=== PATIENT | female | born 1990 | race Caucasian/White ===

== ENCOUNTER 2019-08-16 05:33 | Inpatient (IN) ==
--- NOTE | 2019-08-13 16:35 | History & Physical Report ---
Date of Service August 13, 2019 Assessment & Plan (1) Breech presentation of fetus: section. The patient was counseled to the nature of the procedure including alternatives such as labor. Risks were discussed including bleeding infection injury to bowel bladder ureter vessels and even baby. Deep Vein thrombosis, pulmonary embolus discussed. Breakdown of incision reviewed. Deep vein thrombosis pulmonary embolus hernia and failure of the incision to heal were discussed Patient verbalized understanding of this and was given ample time to ask questions History of Present Illness Primary Care Provider: NO PCP 39+ weeks GA with persistent breech presentation Scheduled for C/S Allergies Allergy/AdvReac Type Severity Reaction Status Date / Time Penicillins Allergy Intermediate swelling Verified 08/09/19 11:22 legs Home Medications Home Medications Medication Instructions Recorded Confirmed Type clindamycin phosphate 1 dose TOP UD PRN 01/04/19 08/09/19 History prenat.vits,jeffery,[id number] 1 tab PO DAILY 01/04/19 08/09/19 History Patient History Medical History Jaw clicking Varicella vaccination Surgical History Hx of LASIK S/P wisdom tooth extraction Family History Mother Hypertension Grandfather (Maternal) Hypertension Father Diverticulitis Grandfather (Maternal) Family history of diabetes mellitus Social History (Updated 01/04/19 @ 15:13 by Cassi Jackson) Preferred Language: Thai Faith Doctor Required: No Beliefs That Will Affect Care: None marital status: marital status details: Juan Roe (31) [phone] Current Living Situation: Spouse Current Living Situation Comment: lives with spouse, no pets current occupational status: employed 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 Feels Safe at Home: Yes Smoking Status: Never smoker Second Hand Exposure: No ; Hx Alcohol Use: No Hx Substance Use: No Physical Exam Constitutional: WD/WN, vitals as above Respiratory: normal respiratory effort, lungs clear to auscultation Cardiovascular: RRR, no murmur, no edema Gastrointestinal (Abdomen): normal bowel sounds, soft, nontender, no hepatospl enomegaly Genitourinary: OB Exam Abdomen: + fundal height (39), + heart tones and + breech Coding Level of Care Code None Diagnoses Breech presentation of fetus O32.1XX0
[2019-08-16] MEDS ORDERED: CITRIC ACID/SODIUM CITRATE 15 ML UDC PO SCH (06:00)
[2019-08-16] MEDS ORDERED: CEFAZOLIN 2,000 MG in SYRINGE 0 ML IV SCH (06:00)
[2019-08-16] MEDS ORDERED: LACTATED RINGER'S 1,000 ML IV SCH ×2 (06:00→11:35)
[2019-08-16 06:17] LABS: Basophils # (auto) 0.02 K/uL (0-0.2); Basophils % (auto) 0.2 %; Eosinophils # (auto) 0.09 K/uL (0-0.5); Hematocrit (blood only) 38.4 % (37-47); Hemoglobin 13.1 g/dL (12.0-16.0); Immature Granulocytes # (auto) 0.05 K/uL (0.00-0.02); Immature Granulocytes % (auto) 0.6 %; Lymphocytes % (auto) 25.1 %; Mean Corpuscular Hemoglobin 31.2 pg (25-34); Mean Corpuscular Volume 91.4 fL (80-100); Monocytes # (auto) 0.69 K/uL (0.11-0.59); Monocytes % (auto) 7.9 %; Neutrophils # (auto) 5.73 K/uL (1.4-6.5); Neutrophils % (auto) 65.2 %; Platelet Count 193 K/uL (130-400); RDW Coefficient of Variation 12.9 % (11.5-14.5); RDW Standard Deviation 42.6 fL (36.4-46.3); White Blood Count 8.78 K/uL (4.8-10.8)
[2019-08-16 06:29] LABS: Mean Corpuscular Hgb Conc 34.1 g/dL (32-36)
[2019-08-16] MEDS ORDERED: CEFAZOLIN 2000MG 2,000 MG/15 ML SYR IV ONE (06:30)
--- NOTE | 2019-08-16 07:02 | History & Physical Bridge Note ---
Date of Service August 16, 2019 History & Physical Bridge Note I have examined the patient, reviewed the History & Physical and in the interval since the performance of the History & Physical I have noted the following changes of clinical significance: no changes noted
[2019-08-16] MEDS ORDERED: MoRPHine SULFATE PF 1 MG/ML 10 ML AMP/VIAL ONE (07:33)
[2019-08-16] MEDS ORDERED: OXYTOCIN 10 UNITS/ML VIAL ONE ×3 (07:35→08:51)
[2019-08-16] MEDS ORDERED: ePHEDrine sulfate 50 MG/ML AMP ONE (08:19)
--- NOTE | 2019-08-16 08:22 | Anesthesiology Consultation ---
Date of Service August 16, 2019 Assessment & Plan Chart Review Chart Review: Acceptable Risk for Surgery Consults Requested none History Surgery Operation Date: 08/16/19 07:30 Proposed Procedures p Section in LD - Charu. Isaiah Rodriguez MD, FACOG Height/Weight Height: 5 ft 8 in Weight: 72.121 kg Allergies Allergy/AdvReac Type Severity Reaction Status Date / Time Penicillins Allergy Intermediate swelling Verified 08/09/19 11:22 legs Medications Home Medications Medication Instructions Recorded Confirmed Last Taken prenat.vits,jeffery,[id number]-[id number]-[id number] 1 tab PO DAILY 01/04/19 08/16/19 08/15/19 Active Medications Generic Name Dose Route Start Last Admin Trade Name Freq PRN Reason Stop Dose Admin Citric Acid/Sodium Citrate 30 ml 08/16/19 06:00 08/16/19 07:33 Bicitra PO 08/16/19 18:00 30 ml PREOP SCAR Administration Lactated Ringer's 1,000 mls @ 999 mls/hr 08/16/19 06:00 08/16/19 07:00 Lr IV 08/16/19 18:00 Infused .Q1H1M SCAR Infusion NPO Date Last Intake of Fluids: 08/15/19 Time Last Intake of Fluids: 22:00 Date Last Intake of Solids: 08/15/19 Time Last Intake of Solids: 22:00 Past Medical History Medical History Jaw clicking Varicella vaccination Past Family History Family History Mother Hypertension Grandfather (Maternal) Hypertension Father Diverticulitis Grandfather (Maternal) Family history of diabetes mellitus Past Surgical History Surgical History Hx of LASIK S/P wisdom tooth extraction Social History Smoking Status: Never smoker Do You Dip or Chew Tobacco: No Hx Alcohol Use: No Hx Substance Use: No substance use type: does not use Physical Exam Vital Signs Last Vital Signs Temp 37.3 C 08/16/19 05:51 Pulse 73 08/16/19 05:50 Resp 18 08/16/19 05:51 BP 141/75 H 08/16/19 05:50 Testing Laboratory Results 08/16/19 05:52 Blood Type O Positive 08/16/19 05:52 Antibody Screen NEGATIVE 08/16/19 05:52
[2019-08-16] MEDS ORDERED: MoRPHine SULFATE PF 1 MG/ML 10 ML AMP/VIAL INT SPINAL ONE (08:23)
[2019-08-16] MEDS ORDERED: HYDROmorphone INJ 0.5 MG/0.5 ML SYR IV PRN (08:23)
[2019-08-16] MEDS ORDERED: MEPERIDINE HCL 25 MG/ML CARP/VIAL IV PRN (08:23)
[2019-08-16] MEDS ORDERED: NALOXONE HCL 1 MG in SODIUM CHLORIDE 0.9% 1000ML 1,000 ML IV PRN (08:23)
[2019-08-16] MEDS ORDERED: ONDANSETRON INJ 2 MG/ML 2 ML VIAL IV PRN (08:23)
[2019-08-16] MEDS ORDERED: PROMETHAZINE HCL 25 MG in SODIUM CHLORIDE 0.9% 50 ML IV PRN (08:23)
[2019-08-16] MEDS ORDERED: LACTATED RINGER'S 500 ML IV PRN (08:23)
[2019-08-16] MEDS ORDERED: DiphenhydrAMINE HCL 50 MG/ML VIAL IV PRN (08:23)
[2019-08-16] MEDS ORDERED: NALOXONE HCL 0.08 MG in SYRINGE 1.8 ML IV PRN (08:23)
[2019-08-16] MEDS ORDERED: METOCLOPRAMIDE HCL 20 MG in SODIUM CHLORIDE 0.9% 50 ML IV PRN (08:23)
[2019-08-16] MEDS ORDERED: ePHEDrine sulfate 50 MG/ML AMP IV PRN (08:23)
[2019-08-16] MEDS ORDERED: NALOXONE HCL 0.4 MG/1 ML VIAL/CARP IV PRN (08:23)
[2019-08-16] MEDS ORDERED: MoRPHine SULFATE 2 MG/ML CARP IV PRN (08:23)
[2019-08-16] MEDS ORDERED: NO NARCOTICS OR SEDATIVES SCH (08:30)
[2019-08-16] MEDS ORDERED: SODIUM CHLORIDE 0.9% 1000ML 1,000 ML IV SCH (08:30)
--- NOTE | 2019-08-16 08:41 | Operative Report ---
PG Post Operative Report Pre & Post Diagnosis Operation Date: 08/16/19 07:30 Pre-Op Diagnosis: 1. Breech Presentation 2. 39 Completed Weeks Post-Op Diagnosis: 1. Same I identified the patient and participated in the time-out.: Yes Procedure Operation Date: 08/16/19 07:30 Actual Procedures p Section in LD(Bilateral) - Khoi Rodriguez MD, FACOG Surgeon Khoi Rodriguez MD, FACOG Plastic Boat Buffer Dr. Blanchard Estimated Blood Loss 600 Findings Consistent with Post-Op Diagnosis Specimens cord gases and blood Description of Procedure Regional anesthetic was given by anesthesia patient had a Eckert catheter inserted by nursing patient was prepped and draped in supine position with a leftward tilt preoperative antibiotics were given timeout performed Pickups with teeth were used to test the skin site and it was found adequate for incision scalpel used to make a Pfannenstiel incision cutting down through subc utaneous fat through the fascia fascia was then dissected laterally with the curved Hidalgo's fascia was released superiorly and inferiorly from the rectus muscles with the curved Hidalgo scissors, rectus muscle split peritoneal cavity entered in a superior location. Opening enlarged to allow exposure bladder retractor placed Metzenbaums used to dissect away the bladder flap low segment transverse incision made on the uterus with scalpel entry was done bluntly with the thiokol operator's finger hysterotomy incision extended with the thiokol operator's finger in the usual fashion baby Was in a andrez breech position. I was able to flex the hips and then deliver the breech through the uterine incision back was placed anteriorly gentle traction on the baby both legs were difficult delivered without difficulty as were the arms and baby's head was easily delivered without any excessive traction or extension the fluid was clear and there was no nuchal cord baby was live and vigorous cord clamped and cut cord gases obtained cord blood obtained placenta removed manually within ensured all placenta removed with a moist lap sponge uterus exteriorized IV Pitocin had been started by anesthesia and uterine tone improved. The uterus was closed in 2 layers first layer and 0 Monocryl running locked second layer 0 Monocryl nonlocked after generous irrigation and suction of the cul-de-sac and bladder flap regions he mostasis was excellent uterus was placed back in the peritoneal cavity and hemostasis was excellent rectus muscles were inspected and found to be dry fascia closed with 0 Vicryl subcutaneous fat closed with 3-0 Vicryl prior to this subcutaneous fat was irrigated skin closed with 4-0 subcuticular Monocryl incision Steri-Stripped urine was clear at the end of the procedure Note the uterus was normal there was no septum no bicornuate uterus I attest to the content of the Intraoperative Record and any orders documented therein. Any exceptions are noted below.
[2019-08-16 08:45] LABS: Base Excess Cord Arterial Bld -0.4 mEq/L (-9-1.8); CO2 Cord Arterial Blood 58 mmHg (39.1-73.5); HCO3 Cord Arterial Blood 28 mmol/L (19.7-28.5); PO2 Cord Arterial Blood 17 mmHg (4.1-31.7); pH Cord Arterial Blood 7.29 (7.1-7.38)
[2019-08-16 08:50] LABS: Base Excess Cord Venous Blood -0.8 mEq/L (-7.7-1.9); Cord Venous Blood HCO3 25 mmol/L (18.4-26.8); Cord Venous Blood PCO2 46 mmHg (30.4-57.2); Cord Venous Blood PO2 28 mmHg (14.1-43.3); Cord Venous Blood pH 7.36 (7.20-7.44); Oxygen Sat Cord Arterial Blood < 60.0 % (<60)
[2019-08-16] MEDS ORDERED: OXYTOCIN 20 UNITS in LACTATED RINGER'S 1,000 ML IV SCH (09:15)
[2019-08-16] MEDS: KETOROLAC 30 MG/ML VIAL IV PRN ×3 (10:15→23:45)
[2019-08-16] MEDS ORDERED: MAGNESIUM HYDROXIDE SUSP 30 ML UDC PO PRN (11:35)
[2019-08-16] MEDS ORDERED: SENNA 8.6 MG TAB PO PRN (11:35)
[2019-08-16] MEDS ORDERED: NON-FORMULARY MEDICATION (Prenat.Vits,Cal,Min-Iron-Folic 1 TAB) PO SCH (11:35)
[2019-08-16] MEDS ORDERED: HYDROCORTISONE ACETATE 25 MG SUPP PR PRN (11:35)
[2019-08-16] MEDS ORDERED: DIPHTHERIA/TETANUS/PERTUSSIS 0.5 ML SYR/VIAL IM ONE (11:35)
[2019-08-16] MEDS ORDERED: BENZOCAINE 20% AER SPR 82.5 GM CAN EXT PRN (11:35)
[2019-08-16] MEDS ORDERED: SUPERCREAM 0.870% 15 GM JAR EXT PRN (11:35)
[2019-08-16] MEDS: SIMETHICONE 80 MG CHEW PO SCH ×3 (16:10→20:51)
--- NOTE | 2019-08-16 16:49 | Anesthesiology Progress Note ---
Date of Service August 16, 2019 Anesthesia Post Procedure Vital Signs Vital Signs: Temp Pulse Pulse Resp BP BP Pulse Ox 08/16/19 15:30 36.6 C 60 18 117/81 99 08/16/19 14:30 36.6 C 78 16 119/74 97 08/16/19 13:30 36.7 C 80 18 128/81 98 08/16/19 12:30 36.6 C 75 16 120/73 97 08/16/19 11:30 36.6 C 71 18 135/88 100 08/16/19 11:10 62 100 08/16/19 11:06 73 134/90 08/16/19 11:05 69 100 08/16/19 11:00 61 100 08/16/19 10:56 64 123/78 08/16/19 10:55 64 100 08/16/19 10:50 69 100 08/16/19 10:46 36.5 C 71 20 129/81 08/16/19 10:45 68 100 08/16/19 10:40 65 100 08/16/19 10:36 70 122/80 08/16/19 10:35 69 100 08/16/19 10:30 72 100 08/16/19 10:26 71 122/81 08/16/19 10:25 71 99 08/16/19 10:20 60 100 08/16/19 10:16 36.4 C L 62 20 125/84 08/16/19 10:15 64 99 08/16/19 10:10 64 100 08/16/19 10:06 70 123/85 08/16/19 10:05 63 100 08/16/19 10:00 64 99 08/16/19 09:56 69 121/82 08/16/19 09:55 71 98 08/16/19 09:50 69 98 08/16/19 09:48 20 08/16/19 09:46 73 20 121/85 08/16/19 09:45 64 97 08/16/19 09:40 73 97 08/16/19 09:36 81 20 112/82 08/16/19 09:35 73 98 08/16/19 09:30 70 97 08/16/19 09:26 65 20 110/69 08/16/19 09:25 67 96 08/16/19 09:20 72 98 08/16/19 09:16 72 20 126/82 08/16/19 09:15 73 97 08/16/19 09:10 72 97 08/16/19 09:06 75 20 117/76 08/16/19 09:05 75 96 08/16/19 09:00 70 96 08/16/19 08:56 70 20 120/67 08/16/19 08:55 68 96 08/16/19 08:50 79 97 08/16/19 08:46 36.5 C 79 20 118/65 08/16/19 08:45 73 95 08/16/19 05:51 37.3 C 18 08/16/19 05:50 73 141/75 H Pain Intensity Lower Abdomen: Pain Intensity: 0
[2019-08-16] MEDS: OXYTOCIN 30 UNITS in LACTATED RINGER'S 1,000 ML IV SCH (17:58)
[2019-08-16] MEDS: DOCUSATE SODIUM 100 MG CAP PO SCH (20:51)
[2019-08-17] MEDS: OXYTOCIN 30 UNITS in LACTATED RINGER'S 1,000 ML IV SCH (02:01)
[2019-08-17] MEDS ORDERED: ONDANSETRON INJ 2 MG/ML 2 ML VIAL IV PRN (02:23)
[2019-08-17] MEDS ORDERED: OXYCODONE/ACETAMINOPHEN 5mg/325mg TAB PO PRN (02:23)
[2019-08-17] MEDS ORDERED: DC INTRASPINAL MORPHINE SCH (02:23)
[2019-08-17] MEDS ORDERED: KETOROLAC 30 MG/ML VIAL IV PRN (02:23)
[2019-08-17] MEDS ORDERED: PROMETHAZINE HCL 25 MG in SODIUM CHLORIDE 0.9% 50 ML IV PRN (02:23)
[2019-08-17] MEDS ORDERED: DiphenhydrAMINE HCL 50 MG/ML VIAL IV PRN (02:23)
[2019-08-17 06:36] LABS: Basophils # (auto) 0.03 K/uL (0-0.2); Basophils % (auto) 0.2 %; Eosinophils # (auto) 0.11 K/uL (0-0.5); Eosinophils % (auto) 0.9 %; Hemoglobin 12.5 g/dL (12.0-16.0); Immature Granulocytes # (auto) 0.04 K/uL (0.00-0.02); Immature Granulocytes % (auto) 0.3 %; Mean Corpuscular Hemoglobin 31.1 pg (25-34); Mean Corpuscular Hgb Conc 33.8 g/dL (32-36); Mean Platelet Volume 10.9 fL (7.4-10.4); Monocytes # (auto) 0.67 K/uL (0.11-0.59); Monocytes % (auto) 5.5 %; Neutrophils # (auto) 8.96 K/uL (1.4-6.5); Neutrophils % (auto) 74.1 %; Platelet Count 159 K/uL (130-400); RDW Coefficient of Variation 12.6 % (11.5-14.5); RDW Standard Deviation 42.3 fL (36.4-46.3); Red Blood Count 4.02 M/uL (4.2-5.4); White Blood Count 12.11 K/uL (4.8-10.8)
--- NOTE | 2019-08-17 07:09 | Obstetrical Progress Note ---
Date of Service August 17, 2019 Assessment & Plan (1) S/P section: Doing well pod 1. Adat. Hewitt out and void, encourage ambulation. Day #:: 1 Subjective Ambulation: limited ambulation Voiding: hewitt catheter in place (just removed) Passing Gas:: No Diet Tolerance:: clear liquids Lochia:: Small Feeding Type:: breast feeding Pain controlled Physical Exam Constitutional WD/WN, vitals as above Cardiovascular Extremities: no calf tenderness and no edema Gastrointestinal (Abdomen) soft, nt, nd ff/nt at u incision c/d/i Psychiatric A+Ox3, euthymic affect Results & Data ([facility]) Vital Signs (Past 12 Hours) Vital Signs Temp Pulse Resp BP Pulse Ox 08/17/19 04:30 36.9 C 76 20 120/72 98 08/17/19 02:30 18 98 08/17/19 01:30 18 98 08/17/19 00:43 20 98 08/17/19 00:42 18 97 08/16/19 23:30 36.8 C 75 18 124/82 98 08/16/19 22:30 18 98 08/16/19 21:30 18 98 08/16/19 20:55 18 98 08/16/19 20:05 36.8 C 71 18 104/63 97 08/16/19 19:30 18 97
[2019-08-17] MEDS: PRENATAL VITAMIN 1 TAB PO SCH (08:18)
[2019-08-17] MEDS: IBUPROFEN 600 MG TAB PO PRN ×2 (08:18→16:46)
[2019-08-17] MEDS: FERROUS SULFATE 325 MG TAB PO SCH (08:18)
[2019-08-17] MEDS: DOCUSATE SODIUM 100 MG CAP PO SCH ×2 (08:18→21:03)
[2019-08-17] MEDS: SIMETHICONE 80 MG CHEW PO SCH ×4 (08:18→21:03)
[2019-08-17] MEDS ORDERED: bisacodyL 5 MG TABEC PO SCH (20:00)
[2019-08-18] MEDS: IBUPROFEN 600 MG TAB PO PRN ×2 (00:42→07:28)
[2019-08-18 06:35] LABS: Hemoglobin 12.5 g/dL (12.0-16.0)
[2019-08-18] MEDS: PRENATAL VITAMIN 1 TAB PO SCH (07:28)
[2019-08-18] MEDS: DOCUSATE SODIUM 100 MG CAP PO SCH (07:28)
[2019-08-18] MEDS: FERROUS SULFATE 325 MG TAB PO SCH (07:28)
--- NOTE | 2019-08-18 07:41 | Obstetrical Progress Note ---
Date of Service August 18, 2019 Assessment & Plan (1) S/P section: Postoperative day #2 from section the patient is doing well ambulating with no extremity pain she will be discharged home today discharge instructions were reviewed she will follow-up in the office Subjective Ambulation: ambulating normally Voiding: no voiding problems Passing Gas:: Yes Diet Tolerance:: regular diet Lochia:: Small Feeding Type:: breast feeding Current Pain Level(1-10): 1 Physical Exam Constitutional WD/WN, vitals as above Respiratory normal respiratory effort, lungs clear to auscultation Cardiovascular RRR, no murmur, no edema Gastrointestinal (Abdomen) normal bowel sounds, soft, nontender, no hepatosplenomegaly (Incision is clean dry intact no redness) Results & Data ([facility]) Vital Signs (Past 12 Hours) Vital Signs Temp Pulse Resp BP 08/18/19 07:39 98.1 F 67 20 112/74 08/17/19 23:28 98.6 F 63 18 108/72
[2019-08-18] MEDS ORDERED: bisacodyL 10 MG SUPP PR PRN (08:28)
--- NOTE | 2019-08-21 08:15 | Discharge Summary ---
Date of Service August 21, 2019 Admission HPI Per Admitting Provider 39+ weeks GA with persistent breech presentation Scheduled for C/S Admission Exam (Per Admitting) Constitutional WD/WN, vitals as above Respiratory normal respiratory effort, lungs clear to auscultation Cardiovascular RRR, no murmur, no edema Gastrointestinal (Abdomen) normal bowel sounds, soft, nontender, no hepatosplenomegaly (Incision is clean dry intact no redness) Discharge Data Consultations 08/16/19 05:30 Consult Anesthesiology Stat Procedures Performed Operation Date: 08/16/19 07:30 Actual Procedures p Section in LD(Bilateral) - Khoi Rodriguez MD, FACOG Hospital Course (1) S/P section: Postoperative day #2 from section the patient is doing well ambulating with no extremity pain she will be discharged home today discharge instructions were reviewed she will follow-up in the office Coding Level of Care Code None Diagnoses S/P section Z98.891
== END 2019-08-18 11:55 | disposition home or self-care (01) | DRG 788 ==
LOC: 4S1 05:33 → EDSTATUS 08:50 → 4S2 11:49

== ENCOUNTER 2022-02-03 05:35 | Inpatient (IN) ==
--- NOTE | 2022-01-28 15:07 | Anesthesiology Consultation ---
Date of Service January 28, 2022 Assessment & Plan (1) Encounter for pre-operative examination: Chart Review Chart Review: Acceptable Risk for Surgery -COVID screening: Per PAT nursing assessment on 01/28/22. No known COVID-19 positive contacts or current COVID-19 related symptoms. Travel screen negative. Patient vaccinated for Covid. At surgeon discretion if preop Covid testing being done. Patient seen by cardiology 10/26/2021 = seen for consult for assessment echocardiography due to family history of her having bicuspid aortic valve. echocardiogram performed at 25 weeks gestation showed structurally normal heart. No evidence of major cardiac disease detected. Normal biventricular systolic function. No further follow-up in cardiology clinic as necessary. Given family historyobtaining routine echocardiogram after is recommended. I do not see any cardiac contraindications for her delivering at [facility]. 08/16/19= Done under SAB at L3-4. Tolerated well (due to breech presentation) Consults Requested none History Surgery Operation Date: 02/03/22 07:30 Proposed Procedures p Section (Delivery of Baby throught Abdominal Incision) - Khoi Rodriguez MD, FACOG Height/Weight Height: 5 ft 8 in Weight: 74.389 kg Allergies Allergy/AdvReac Type Severity Reaction Status Date / Time Penicillins Allergy Intermediate swelling Verified 02/02/22 09:03 legs Medications Home Medications Medication Instructions Recorded Confirmed Last Taken prenat.vits,jeffery,[id number] 1 tab PO QAM 01/04/19 02/03/22 02/02/22 09:00 Past Medical History Medical History History of COVID-19 06/2021, home test, not hosp; no symptoms- was positive Jaw clicking Past Family History Family History Mother Hypertension Grandfather (Maternal) Hypertension Father Diverticulitis Grandfather (Maternal) Family history of diabetes mellitus Denies family history of Ovarian cancer Breast cancer Lung cancer Colorectal cancer Past Surgical History Surgical History (Updated 02/03/22 @ 06:21 by Daxa Abreu) H/O section 08/16/2019 Hx of LASIK S/P wisdom tooth extraction Social History Smoking Status: Never smoker Do You Dip or Chew Tobacco: No Hx Alcohol Use: No Hx Substance Use: No substance use type: does not use Physical Exam Vital Signs Last Vital Signs Temp 36.4 C L 02/03/22 05:44 Pulse 74 02/03/22 07:05 Resp 18 02/03/22 05:44 BP 134/92 02/03/22 07:05 Testing Laboratory Results 02/03/22 05:47 Blood Type O Positive 02/03/22 05:47 Antibody Screen NEGATIVE 02/03/22 05:47
--- NOTE | 2022-02-02 19:19 | History & Physical Report ---
Date of Service February 02, 2022 Assessment & Plan (1) Encounter for pre-operative examination: Plan: Repeat section. The patient was counseled to the nature of the procedure including alternatives such as labor. Risks were discussed including bleeding infection injury to bowel bladder ureter vessels and even baby. The risks of internal organ injury were discussed as being higher with prior sections. Deep Vein Thrombosis, pulmonary embolus and breakdown of the incision discussed. Deep vein thrombosis pulmonary embolus hernia and failure of the incision to heal were discussed Patient verbalized understanding of this and was given ample time to ask questions History of Present Illness Primary Care Provider: NO PCP Estimated Delivery Date Method Current WG Current Estimate 02/06/22 LMP (Certain) 39w 3d LMP: 05/02/21 : 2 Full term: 1 Premature: 0 Total Number of Induced Abortions: 0 Total Number of Spontaneous Abortions: 0 Ectopics: 0 Multiple births: 0 Number of Living Children: 1 and Delivery Plans Prior for breech leaning toward c/s. C/S SCHEDULED FOR 02/03/[address] YVONNE HAGEN with hx of bicuspid aortic valve echo - normal Pfizer covid vaccinated *03/03/20 *03/24/20 no booster home positive tests for covid x 2--July 02 Allergies Allergy/AdvReac Type Severity Reaction Status Date / Time Penicillins Allergy Intermediate swelling Verified 02/02/22 09:03 legs Home Medications Medication Instructions Recorded Confirmed Type prenat.vits,jeffery,[id number]-[id number] 1 tab PO QAM 01/04/19 02/02/22 History Patient History Medical History History of COVID-19 06/2021, home test, not hosp; no symptoms- was positive Jaw clicking Surgical History H/O section Hx of LASIK S/P wisdom tooth extraction Family History Mother Hypertension Grandfather (Maternal) Hypertension Father Diverticulitis Grandfather (Maternal) Family history of diabetes mellitus Denies family history of Ovarian cancer Breast cancer Lung cancer Colorectal cancer Social History (Updated 06/21/21 @ 10:57 by Anne Weaver RN) Smoking Status: Never smoker Second Hand Exposure: No; Hx Alcohol Use: No Hx Substance Use: No Preferred Language: Polish Communication Ability: Effective Lace Roller Operator Required: No Beliefs That Will Affect Care: None marital status: marital status details: Juan Roe (33) [phone] Current Living Situation: Spouse and Family Current Living Situation Comment: lives with spouse and child. 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
[2022-02-03 05:57] LABS: Basophils # (auto) 0.06 K/uL (0-0.2); Basophils % (auto) 0.5 %; Eosinophils # (auto) 0.21 K/uL (0-0.50); Eosinophils % (auto) 1.8 %; Hematocrit (blood only) 38.1 % (34.1-44.9); Hemoglobin 13.1 g/dl (12.0-16.0); Immature Granulocytes # (auto) 0.11 K/uL (0.00-0.02); Lymphocytes # (auto) 2.87 K/uL (1.2-3.4); Lymphocytes % (auto) 25.2 %; Mean Corpuscular Hemoglobin 30.8 pg (25.0-34.0); Mean Corpuscular Hgb Conc 34.4 g/dL (32.0-36.0); Mean Corpuscular Volume 89.6 fL (80.0-100.0); Mean Platelet Volume 10.8 fL (9.4-12.3); Monocytes # (auto) 0.67 K/uL (0.24-0.82); Monocytes % (auto) 5.9 %; Neutrophils # (auto) 7.49 K/uL (1.4-6.5); Neutrophils % (auto) 65.6 %; Platelet Count 214 K/uL (130-400); RDW Coefficient of Variation 13.2 % (11.5-14.5); RDW Standard Deviation 43.2 fL (36.4-46.3); Red Blood Count 4.25 M/uL (3.93-5.22); White Blood Count 11.41 K/ul (4.8-10.8)
[2022-02-03] MEDS ORDERED: ceFAZolin 2,000 MG in SYRINGE 0 ML IV SCH (06:00)
[2022-02-03] MEDS ORDERED: LACTATED RINGER'S 1,000 ML IV SCH ×2 (06:00→08:45)
[2022-02-03] MEDS ORDERED: CITRIC ACID/SODIUM CITRATE 15 ML UDC PO SCH (06:00)
--- NOTE | 2022-02-03 07:05 | History & Physical Bridge Note ---
Date of Service February 03, 2022 History & Physical Bridge Note I have examined the patient, reviewed the History & Physical and in the interval since the performance of the History & Physical I have noted the following changes of clinical significance: no changes noted
[2022-02-03] MEDS ORDERED: MoRPHine SULFATE PF 1 MG/ML 10 ML AMP/VIAL ONE (07:45)
[2022-02-03] MEDS ORDERED: DIPHTHERIA/TETANUS/PERTUSSIS 0.5 ML SYR/VIAL IM ONE (08:32)
[2022-02-03] MEDS ORDERED: MAGNESIUM HYDROXIDE SUSP 30 ML UDC PO PRN (08:32)
[2022-02-03] MEDS ORDERED: SENNA 8.6 MG TAB PO PRN (08:32)
[2022-02-03] MEDS ORDERED: HYDROCORTISONE ACETATE 25 MG SUPP PR PRN (08:32)
[2022-02-03] MEDS ORDERED: BENZOCAINE 20% AER SPR 82.5 GM CAN EXT PRN (08:32)
[2022-02-03] MEDS ORDERED: MoRPHine SULFATE PF 1 MG/ML 10 ML AMP/VIAL INT SPINAL ONE (08:33)
[2022-02-03] MEDS ORDERED: MEPERIDINE HCL 25 MG/ML CARP/VIAL IV PRN (08:33)
[2022-02-03] MEDS ORDERED: ONDANSETRON INJ 2 MG/ML 2 ML VIAL IV PRN (08:33)
[2022-02-03] MEDS ORDERED: PROMETHAZINE HCL 25 MG in SODIUM CHLORIDE 0.9% 50 ML IV PRN (08:33)
[2022-02-03] MEDS ORDERED: MoRPHine SULFATE 2 MG/ML CARP IV PRN (08:33)
[2022-02-03] MEDS ORDERED: NALOXONE HCL 0.4 MG/1 ML VIAL/CARP IV PRN (08:33)
[2022-02-03] MEDS ORDERED: NALOXONE HCL 0.08 MG in SYRINGE 1.8 ML IV PRN (08:33)
[2022-02-03] MEDS ORDERED: NALBUPHINE HCL INJ 10 MG/ML AMP IV PRN (08:33)
[2022-02-03] MEDS ORDERED: NALOXONE HCL 1 MG in SODIUM CHLORIDE 0.9% 1000ML 1,000 ML IV PRN (08:33)
[2022-02-03] MEDS ORDERED: HYDROmorphone INJ 0.5 MG/0.5 ML SYR IV PRN (08:33)
[2022-02-03] MEDS ORDERED: ePHEDrine sulfate 50 MG/ML AMP IV PRN (08:33)
[2022-02-03] MEDS ORDERED: KETOROLAC 30 MG/ML VIAL IV PRN (08:33)
[2022-02-03] MEDS ORDERED: LACTATED RINGER'S 500 ML IV PRN (08:33)
[2022-02-03] MEDS ORDERED: diphenhydrAMINE 50 MG/ML VIAL IV PRN (08:33)
[2022-02-03] MEDS ORDERED: ePHEDrine sulfate 50 MG/ML SYR ONE (08:35)
[2022-02-03] MEDS ORDERED: OXYTOCIN 10 UNITS/ML 10ML VIAL ONE (08:35)
[2022-02-03] MEDS ORDERED: DC INTRASPINAL MORPHINE SCH (08:45)
[2022-02-03] MEDS ORDERED: NO NARCOTICS OR SEDATIVES SCH (08:45)
[2022-02-03] MEDS ORDERED: SODIUM CHLORIDE 0.9% 1000ML 1,000 ML IV SCH (08:45)
--- NOTE | 2022-02-03 08:56 | Operative Report ---
PG Post Operative Report Pre & Post Diagnosis Operation Date: 02/03/22 07:30 Pre-Op Diagnosis: Prior section, desires repeat Post-Op Diagnosis: Same as pre-op I identified the patient and participated in the time-out.: Yes Procedure Operation Date: 02/03/22 07:30 Actual Procedures p Repeat Section (Delivery of Baby throught Abdominal Incision); Live male child at 0811(Bilateral) - Khoi Rodriguez MD, FACOG Surgeon Khoi Rodriguez MD, FACOG Microsoft Application Developer Dr. Alcantara Estimated Blood Loss 600 Findings Consistent with Post-Op Diagnosis Specimens Cord blood Description of Procedure Regional anesthetic had been given by anesthesia patient was prepped and draped with a leftward tilt preoperative antibiotics had been given in appropriate timing by anesthesiology. Once the prep was allowed to fully dry timeout was performed. Pickups with teeth were used to test the incision area was found to be adequate for incision as the patient did not feel sharp pain. Scalpel was used to make a Pfannenstiel incision on the lower abdomen. We then cut through the subcutaneous fat down to the level of the anterior rectus sheath fascia this was cut in the midline and then extended laterally with the curved Hidalgo scissors. At this stage we then placed 2 Calixto clamps on the anterior aspect of the fascia. Using the curved Hidalgo's we are able to dissect the fascia superiorly away from the rectus muscles. Care was taken to maintain hemostasis. Calixto clamps were then placed to the inferior aspect of the anterior sheath of the fascia. Fascia was then dissected away from the rectus muscles inferiorly towards the pubic bone. A Calixto was then placed in the midline both inferiorly and superiorly. This w as to allow exposure by retraction rectus muscles were in the midline with were then able to cut through the peritoneum and then enter the peritoneal cavity. Opening was enlarged to allow exposure of the peritoneal cavity both superiorly and inferiorly. Once adequate space was obtained a bladder retractor was placed to expose the lower segment Metzenbaums were used to dissect the bladder flap inferiorly away from the uterus. This was done sharply bladder retractor was then repositioned to expose the lower segment of the uterus Fresh scalpel was used to make a low transverse incision on the uterus. Uterus was then entered bluntly with the operators finger, membranes ruptured and the opening was enlarged using the operators fingers bluntly pulling superiorly and inferiorly to allow exposure. Baby was delivered by first flexion of the head elevation of the head out of the pelvis and then pressure by the curriculum assistant on the maternal abdomen. Baby's head was then delivered mouth and then nares were suctioned and then using gentle traction the baby was fully delivered. Live vigorous infant. Fluid was clear cord clamped and cut cord gases obtained cord blood obtained baby handed to pediatrics. Placenta removed was removed with traction we ensure the entire placenta was removed with a moist lap sponge into the uterus Uterus was then exteriorized. IV Pitocin had been started by anesthesia tone improved there were no extensions the uterus was then closed using 0 Monocryl in a 2 layer closure the first layer closed in a running locked fashion from left to right and then a second closure from left to right in a running nonlocked fashion. At this stage hemostasis was excellent. Uterus was placed back in the peritoneal cavity with suction irrigation out and inspection of the uterus at this stage revealed excellent hemostasis Retractors were removed urine color was clear at this stage of the case we inspected the rectus muscles they were hemostatic fascia was closed with 0 Vicryl subcutaneous fat was irrigated and closed with 3-0 Vicryl skin closed with 4-0 subcuticular Monocryl Note adnexa and uterus were normal no significant adhesions I attest to the content of the Intraoperative Record and any orders documented therein. Any exceptions are noted below. OB Procedure Charges 20207
[2022-02-03] MEDS: OXYTOCIN 20 UNITS in LACTATED RINGER'S 1,000 ML IV SCH ×2 (09:45→17:02)
[2022-02-03] MEDS: SIMETHICONE 80 MG CHEW PO SCH ×3 (14:05→20:52)
--- NOTE | 2022-02-03 16:55 | Anesthesiology Progress Note ---
Date of Service February 03, 2022 Anesthesia Post Procedure Vital Signs Vital Signs: Temp Pulse Pulse Resp BP BP Pulse Ox 02/03/22 16:02 16 99 02/03/22 15:45 36.5 C 71 16 118/74 99 02/03/22 15:11 16 99 02/03/22 14:08 18 100 02/03/22 13:30 16 100 02/03/22 12:15 36.5 C 70 16 125/87 100 02/03/22 12:15 16 100 02/03/22 10:59 36.3 C L 20 02/03/22 10:20 18 02/03/22 09:50 20 02/03/22 09:50 20 02/03/22 09:40 20 02/03/22 09:31 20 02/03/22 09:20 20 02/03/22 09:10 18 02/03/22 09:00 18 02/03/22 08:50 36.4 C L 20 02/03/22 11:59 74 100 02/03/22 11:54 69 100 02/03/22 11:49 72 100 02/03/22 11:47 70 120/77 02/03/22 11:44 68 100 02/03/22 11:39 67 100 02/03/22 11:34 72 100 02/03/22 11:29 67 100 02/03/22 11:24 74 100 02/03/22 11:19 74 100 02/03/22 11:14 72 100 02/03/22 11:09 68 100 02/03/22 11:04 66 100 02/03/22 10:59 66 100 02/03/22 10:54 63 100 02/03/22 10:49 68 100 02/03/22 10:48 65 124/88 02/03/22 10:44 73 100 02/03/22 10:39 69 100 02/03/22 10:38 70 121/82 02/03/22 10:34 65 100 02/03/22 10:29 67 100 02/03/22 10:28 119/82 02/03/22 10:24 71 100 02/03/22 10:19 72 100 02/03/22 10:18 66 116/81 02/03/22 10:14 65 100 02/03/22 10:09 72 98 02/03/22 10:08 65 124/81 02/03/22 10:04 63 98 02/03/22 09:59 64 98 02/03/22 09:58 63 119/78 02/03/22 09:54 70 97 02/03/22 09:49 72 121/77 97 02/03/22 09:44 69 95 02/03/22 09:39 67 95 02/03/22 09:38 72 109/80 02/03/22 09:34 69 95 02/03/22 09:29 73 95 02/03/22 09:28 71 115/79 02/03/22 09:24 73 95 02/03/22 09:19 81 94 02/03/22 09:18 68 123/85 02/03/22 09:14 75 94 02/03/22 09:09 84 98 02/03/22 09:08 71 114/76 02/03/22 09:04 70 98 02/03/22 08:59 72 99 02/03/22 08:58 77 110/68 02/03/22 08:54 74 98 02/03/22 08:49 77 98 02/03/22 08:48 77 115/71 02/03/22 07:05 74 134/92 02/03/22 05:41 77 142/87 H 02/03/22 05:44 36.4 C L 18 O2 Del Method 02/03/22 16:02 02/03/22 15:45 Room Air 02/03/22 15:11 02/03/22 14:08 02/03/22 13:30 02/03/22 12:15 Room Air 02/03/22 12:15 02/03/22 10:59 02/03/22 10:20 02/03/22 09:50 02/03/22 09:50 02/03/22 09:40 02/03/22 09:31 02/03/22 09:20 02/03/22 09:10 02/03/22 09:00 02/03/22 08:50 02/03/22 11:59 02/03/22 11:54 02/03/22 11:49 02/03/22 11:47 02/03/22 11:44 02/03/22 11:39 02/03/22 11:34 02/03/22 11:29 02/03/22 11:24 02/03/22 11:19 02/03/22 11:14 02/03/22 11:09 02/03/22 11:04 02/03/22 10:59 02/03/22 10:54 02/03/22 10:49 02/03/22 10:48 02/03/22 10:44 02/03/22 10:39 02/03/22 10:38 02/03/22 10:34 02/03/22 10:29 02/03/22 10:28 02/03/22 10:24 02/03/22 10:19 02/03/22 10:18 02/03/22 10:14 02/03/22 10:09 02/03/22 10:08 02/03/22 10:04 02/03/22 09:59 02/03/22 09:58 02/03/22 09:54 02/03/22 09:49 02/03/22 09:44 02/03/22 09:39 02/03/22 09:38 02/03/22 09:34 02/03/22 09:29 02/03/22 09:28 02/03/22 09:24 02/03/22 09:19 02/03/22 09:18 02/03/22 09:14 02/03/22 09:09 02/03/22 09:08 02/03/22 09:04 02/03/22 08:59 02/03/22 08:58 02/03/22 08:54 02/03/22 08:49 02/03/22 08:48 02/03/22 07:05 02/03/22 05:41 02/03/22 05:44 Transfer of Care Handoff Completed per policy Notes Mental Status: alert / awake / arousable and participated in evaluation Nausea / Vomiting: adequately controlled Pain: adequately controlled Airway Patency, RR, SpO2: stable & adequate BP & HR: stable & adequate Hydration State: stable & adequate Neuraxial Anesthesia: was administered and sensory block is resolving Anesthetic Complications: no major complications apparent and Pt Satisfied with anesthetic care
[2022-02-03] MEDS: DOCUSATE SODIUM 100 MG CAP PO SCH (20:52)
[2022-02-04] MEDS ORDERED: diphenhydrAMINE Capsule 25 MG CAP PO PRN (02:33)
[2022-02-04] MEDS ORDERED: diphenhydrAMINE 50 MG/ML VIAL IV PRN (02:33)
[2022-02-04] MEDS ORDERED: PROMETHAZINE HCL 25 MG in SODIUM CHLORIDE 0.9% 50 ML IV PRN (02:33)
[2022-02-04] MEDS ORDERED: ONDANSETRON INJ 2 MG/ML 2 ML VIAL IV PRN (02:33)
--- NOTE | 2022-02-04 05:53 | Obstetrical Progress Note ---
Date of Service February 04, 2022 Assessment & Plan (1) care following delivery: Plan - Overall, feeling well and eating well today - Infant feeding going well without concern - Urinating and passing gas appropriately - Ambulating well in room (continue to progress, first attempt this AM) - Pain controlled w/ Ibuprofen - Hgb 12.6 02/04 - Vitals stable and wnl - Routine PP care progressing well - Anticipate discharge @ 48-72 hours PP - Recommending f/u outpatient in 6 weeks Admission and Anticipated Discharge Date Admission Date: February 03, 2022 Supervising Physician Co-Signing Physician Notes Resident Physician Supervision Note: I was present with Dr. Burkett during the history and exam. I discussed the case with the resident and agree with the findings and plan as documented in the note. Any exceptions or clarifications are listed here: [None] Documented By: Khoi Rodriguez MD, FACOG Subjective Cecelia is a 31F who is POD #1 following delivery at 39 4/7. She reports feeling well overall this morning. - Ambulation - well throughout room (first attempt this AM) - Voiding/Eckert - independent voids, no dysuria or pressure - Gas/Stool - passing gas, no bowel movement - Diet - regular, no nausea or emesis - Lochia - diminishing, light amount - Infant Feeding Type - breast feeding - Pain Level - 0/10, controlled with Ibuprofen Review of Systems - Denies fever, chills, sweats - Denies shortness of breath, difficulty breathing, chest pain, palpitations, chest pressure. - Denies breast pain. - Denies dysuria. - Denies headache or changes in vision. Physical Exam Physical Exam: General: Alert, oriented. No acute distress. Cardiac: RRR, normal S1/S2, no murmurs/rubs/gallops. Respiratory: Non-labored, CTAB, no wheezes/rales/rhonchi. Symmetric chest rise. Abdomen: Soft, nontender, nondistended. Bowel sounds present. Uterus: Uterine fundus firm, palpable 2 cm below umbilicus. Lower Extremities: No lower extremity edema or swelling. No deep calf pain. Tim's negative bilaterally. Results & Data ([facility]) Vital Signs (Past 12 Hours) Vital Signs Temp Pulse Resp BP Pulse Ox O2 Del Method 02/04/22 02:30 36.8 C 72 18 124/75 97 Room Air 02/04/22 01:30 16 98 02/04/22 02:10 16 97 02/04/22 00:46 18 96 02/04/22 00:00 36.7 C 74 18 133/77 97 Room Air 02/03/22 21:30 18 98 02/03/22 22:30 18 98 02/03/22 23:48 16 97 02/03/22 20:45 18 98 02/03/22 20:45 36.7 C 77 18 122/80 98 Room Air 02/03/22 18:47 16 100 Resident Activity Tracking Resident Involvement: Resident Care Provided Care Provided: OB Delivery
[2022-02-04] MEDS: IBUPROFEN 600 MG TAB PO PRN ×3 (06:33→19:48)
[2022-02-04 07:15] LABS: Basophils # (auto) 0.03 K/uL (0-0.2); Basophils % (auto) 0.2 %; Eosinophils # (auto) 0.13 K/uL (0-0.50); Hematocrit (blood only) 36.2 % (34.1-44.9); Hemoglobin 12.6 g/dl (12.0-16.0); Immature Granulocytes # (auto) 0.08 K/uL (0.00-0.02); Immature Granulocytes % (auto) 0.6 %; Lymphocytes # (auto) 1.52 K/uL (1.2-3.4); Lymphocytes % (auto) 11.5 %; Mean Corpuscular Hemoglobin 30.7 pg (25.0-34.0); Mean Corpuscular Hgb Conc 34.8 g/dL (32.0-36.0); Mean Corpuscular Volume 88.1 fL (80.0-100.0); Mean Platelet Volume 10.2 fL (9.4-12.3); Monocytes # (auto) 0.51 K/uL (0.24-0.82); Monocytes % (auto) 3.9 %; Neutrophils # (auto) 10.92 K/uL (1.4-6.5); Neutrophils % (auto) 82.8 %; Platelet Count 166 K/uL (130-400); RDW Coefficient of Variation 13.2 % (11.5-14.5); RDW Standard Deviation 42.3 fL (36.4-46.3); Red Blood Count 4.11 M/uL (3.93-5.22); White Blood Count 13.19 K/ul (4.8-10.8)
[2022-02-04] MEDS: FERROUS SULFATE 325 MG TAB PO SCH (08:05)
[2022-02-04] MEDS: SIMETHICONE 80 MG CHEW PO SCH ×4 (08:05→19:48)
[2022-02-04] MEDS: DOCUSATE SODIUM 100 MG CAP PO SCH ×2 (08:05→19:48)
[2022-02-04] MEDS: PRENATAL VITAMIN 1 TAB PO SCH (08:05)
[2022-02-04] MEDS: oxyCODONE/ACETAMINOPHEN 5mg/325mg TAB PO PRN ×2 (15:30→19:48)
[2022-02-04] MEDS ORDERED: bisacodyL 5 MG TABEC PO SCH (20:00)
[2022-02-05] MEDS: oxyCODONE/ACETAMINOPHEN 5mg/325mg TAB PO PRN ×2 (00:28→08:30)
[2022-02-05] MEDS: IBUPROFEN 600 MG TAB PO PRN ×2 (00:28→08:31)
--- NOTE | 2022-02-05 07:21 | Obstetrical Progress Note ---
Date of Service February 05, 2022 Assessment & Plan (1) care following delivery: Plan - Overall, feeling well and eating well today - feeding going well without concern - Urinating and passing gas appropriately - Ambulating well in room - Pain controlled w/ Ibuprofen - Hgb 12.6 02/04 - Vitals stable and wnl - Routine PP care progressing well - Discharge today, Rx percocet sent if needed - Recommending f/u outpatient in 6 weeks Subjective Ambulation: ambulating normally Voiding: no voiding problems Passing Gas:: Yes Diet Tolerance:: regular diet Lochia:: Small Feeding Type:: bottle feeding Physical Exam Constitutional WD/WN, vitals as above Eyes PERRL, conjunctivae normal, anicteric sclerae Neck normal visual inspection Respiratory normal respiratory effort and able to speak in complete sentences; no respiratory distress and no labored breathing Cardiovascular Rate/Rhythm: regular rate and regular rhythm Extremities: no edema Chest (Breasts) Chest: normal inspection of chest Gastrointestinal (Abdomen) Inspection/Auscultation: abdomen normal to inspection Soft, postgravid Incision c/d/i with steri strips Psychiatric A+Ox3, euthymic affect Genitourinary OB Exam Abdomen: + fundal height Fundus: + firm and + relation to umbilicus (fundus just below umbilicus); not tender Results & Data ([facility]) Vital Signs (Past 12 Hours) Vital Signs Temp Pulse Resp BP Pulse Ox O2 Del Method 02/04/22 23:23 97.9 F 82 18 116/62 02/04/22 19:56 97.9 F 78 20 122/64 97 Room Air
[2022-02-05 07:47] LABS: Hematocrit (blood only) 34.8 % (34.1-44.9); Hemoglobin 11.8 g/dl (12.0-16.0)
[2022-02-05] MEDS: FERROUS SULFATE 325 MG TAB PO SCH (08:30)
[2022-02-05] MEDS: PRENATAL VITAMIN 1 TAB PO SCH (08:30)
[2022-02-05] MEDS: SIMETHICONE 80 MG CHEW PO SCH (08:30)
[2022-02-05] MEDS: DOCUSATE SODIUM 100 MG CAP PO SCH (08:30)
[2022-02-05] MEDS ORDERED: bisacodyL 10 MG SUPP PR PRN (08:32)
--- NOTE | 2022-02-08 16:35 | Discharge Summary ---
Date of Service February 08, 2022 Admission HPI Per Admitting Provider Estimated Delivery Date Method Current WG Current Estimate 02/06/22 LMP (Certain) 39w 3d LMP: 05/02/21 : 2 Full term: 1 Premature: 0 Total Number of Induced Abortions: 0 Total Number of Spontaneous Abortions: 0 Ectopics: 0 Multiple births: 0 Number of Living Children: 1 and Delivery Plans Prior for breech leaning toward c/s. C/S SCHEDULED FOR 02/03/[address] RUSSELL FOB with hx of bicuspid aortic valve echo - normal Pfizer covid vaccinated *03/03/20 *03/24/20 no booster home positive tests for covid x 2--July 02 Admission Exam (Per Admitting) Constitutional WD/WN, vitals as above well developed and well nourished Respiratory normal respiratory effort, lungs clear to auscultation normal respiratory effort Cardiovascular RRR, no murmur, no edema Gastrointestinal (Abdomen) normal bowel sounds, soft, nontender, no hepatosplenomegaly Discharge Data Consultations 02/03/22 05:35 Consult Anesthesiology Stat Procedures Performed Operation Date: 02/03/22 07:30 Actual Procedures p Repeat Section (Delivery of Baby throught Abdominal Incision); Live male child at 0811(Bilateral) - Khoi Russell MD, FACOG Hospital Course (1) care following delivery: Plan - Overall, feeling well and eating well today - Infant feeding going well without concern - Urinating and passing gas appropriately - Ambulating well in room - Pain controlled w/ Ibuprofen - Hgb 12.6 02/04 - Vitals stable and wnl - Routine PP care progressing well - Discharge today, Rx percocet sent if needed - Recommending f/u outpatient in 6 weeks Coding Level of Care Code None Diagnoses care following delivery Z39.2
== END 2022-02-05 11:15 | disposition home or self-care (01) | DRG 788 ==
LOC: 4S1 05:35 → EDSTATUS 07:30 → 4E2 12:42
DX: O34.211 Maternal care for low transverse scar from previous cesarean delivery; Z37.0 Single live birth; Z3A.39 39 weeks gestation of pregnancy; Z88.0 Allergy status to penicillin

== ENCOUNTER 2024-06-20 05:40 | Inpatient (IN) ==
--- NOTE | 2024-06-07 11:20 | Anesthesiology Consultation ---
Date of Service June 07, 2024 Assessment & Plan (1) Encounter for pre-operative examination: Chart Review Chart Review: Acceptable Risk for Surgery and Patient NOT seen in Pre Admission Testing Infectious Disease screening: Per PAT nursing assessment on 06/07/24, No known infectious disease contacts in past 10 days or current infectious disease symptoms. No recent travel outside the country. History Surgery Operation Date: 06/20/24 07:30 Proposed Procedures p Section (Delivery of Baby Through Abdominal Incsion) - Khoi Rodriguez MD, FACOG Height/Weight Height: 5 ft 8 in Weight: 76.204 kg Allergies Allergy/AdvReac Type Severity Reaction Status Date / Time Penicillins Allergy Intermediate swelling Verified 06/07/24 09:42 legs Medications Home Medications Medication Instructions Recorded Confirmed Last Taken prenat.vits,jeffery,[id number] 1 tab PO QAM 11/16/23 06/07/24 06/05/24 09:00 sertraline 25 mg tablet (Zoloft) 25 mg PO DAILY #90 tabs 06/03/24 06/07/24 06/05/24 09:00 Past Medical History Medical History Depression History of COVID-19 06/2021, home test, not hosp; no symptoms- was positive Jaw clicking left side, when opens jaw wide Past Family History Family History Mother Hypertension Grandfather (Maternal) Hypertension Father Diverticulitis Grandfather (Maternal) Family history of diabetes mellitus Other No family history of adverse response to anesthesia Denies family history of Ovarian cancer Breast cancer Lung cancer Colorectal cancer Past Surgical History Surgical History (Updated 06/07/24 @ 11:19 by Mago Quinones PA-C) H/O section 08/16/19, 02/03/22 (SAB L3-L4 x 1 attempt) Hx of LASIK S/P wisdom tooth extraction Social History Smoking Status: Never smoker Do You Dip or Chew Tobacco: No Hx Alcohol Use: No Hx Substance Use: No substance use type: does not use Lab Results Anesthesia Preop Results Results Anesthesia Widget: WBC 9.87 K/ul (4.8-10.8) 06/05/24 Hgb 13.0 g/dl (12.0-16.0) 06/05/24 Hct 36.7 % (37.0-47.0) L 06/05/24 Plt 189 K/uL (130-400) 06/05/24 Creat 0.55 mg/dl (0.6-1.2) L 06/05/24
[2024-06-20] MEDS ORDERED: ACETAMINOPHEN 500 MG TAB PO SCH (06:00)
[2024-06-20] MEDS ORDERED: LACTATED RINGER'S 1,000 ML IV SCH (06:00)
[2024-06-20] MEDS: LACTATED RINGER'S 1,000 ML IV SCH ×2 (06:24→11:10)
[2024-06-20 06:27] LABS: Hematocrit (blood only) 37.4 % (37.0-47.0); Hemoglobin 12.9 g/dl (12.0-16.0); Mean Corpuscular Hemoglobin 30.8 pg (25.0-34.0); Mean Corpuscular Hgb Conc 34.5 g/dL (32.0-36.0); Mean Corpuscular Volume 89.3 fL (80.0-100.0); Mean Platelet Volume 10.8 fL (9.4-12.4); Platelet Count 192 K/uL (130-400); RDW Coefficient of Variation 13.6 % (11.5-14.5); RDW Standard Deviation 43.9 fL (36.4-46.3); Red Blood Count 4.19 M/uL (4.20-5.40); White Blood Count 7.71 K/ul (4.8-10.8)
[2024-06-20] MEDS: ACETAMINOPHEN 500 MG TAB PO SCH (06:30)
[2024-06-20] MEDS ORDERED: PHENYLEPHRINE HCL 25 MG/250 ML NSS IV ONE (06:47)
[2024-06-20] MEDS ORDERED: PHENYLEPHRINE 100MCG/ML 5ML SYR ONE (06:47)
[2024-06-20] MEDS ORDERED: MoRPHine SULFATE PF 1 MG/ML 10 ML AMP/VIAL ONE (06:50)
[2024-06-20] MEDS ORDERED: DEXAMETHASONE SOD INJ 4 MG/ML VIAL ONE (06:50)
[2024-06-20] MEDS ORDERED: ONDANSETRON INJ 2 MG/ML 2 ML VIAL ONE (06:50)
[2024-06-20] MEDS ORDERED: fentaNYL citrate PF 100 MCG/2 ML VIAL ONE (06:51)
--- NOTE | 2024-06-20 07:01 | History & Physical Report ---
Date of Service June 20, 2024 Assessment & Plan (1) Previous delivery affecting : Plan: Repeat section. The patient was counseled to the nature of the procedure including alternatives such as labor. Risks were discussed including bleeding infection injury to bowel bladder ureter vessels and even baby. The risks of internal organ injury were discussed as being higher with prior sections. Deep Vein Thrombosis, pulmonary embolus and breakdown of the incision discussed. Deep vein thrombosis pulmonary embolus hernia and failure of the incision to heal were discussed Patient verbalized understanding of this and was given ample time to ask questions Admission and Anticipated Discharge Date Admission Date: June 20, 2024 History of Present Illness Primary Care Provider: NO PCP Estimated Delivery Date Method Current WG Current Estimate 06/23/24 LMP (Certain) 39w 3d LMP: 09/17/23 : 3 Full term: 2 Premature: 0 Total Number of Induced Abortions: 0 Total Number of Spontaneous Abortions: 0 Ectopics: 0 Multiple births: 0 Number of Living Children: 2 and Delivery Plans Previous Section affecting C/S SCHEDULED FOR 06/20/[address] RUSSELL AND [address] ROSE ASSIST FOB with hx of bicuspid aortic valve * echo [facility] [place]26/[place]--aorta measures upper limit of normal; otherwise structurally normal * echo Hep B not immune Allergies Allergy/AdvReac Type Severity Reaction Status Date / Time Penicillins Allergy Intermediate swelling Verified 06/19/24 08:59 legs Home Medications Medication Instructions Recorded Confirmed Type prenat.vits,jeffery,sza-nmvp-onpty 1 tab PO QAM 11/16/23 06/20/24 History sertraline 25 mg tablet (Zoloft) 25 mg PO DAILY #90 tabs 06/03/24 06/20/24 Rx Patient History Medical History Depression History of COVID-19 06/2021, home test, not hosp; no symptoms- was positive Jaw clicking left side, when opens jaw wide Surgical History H/O section 08/16/19, 02/03/22 (SAB L3-L4 x 1 attempt) Hx of LASIK S/P wisdom tooth extraction Family History Mother Hypertension Grandfather (Maternal) Hypertension Father Diverticulitis Grandfather (Maternal) Family history of diabetes mellitus Other No family history of adverse response to anesthesia Denies family history of Ovarian cancer Breast cancer Lung cancer Colorectal cancer Social History Smoking Status: Never smoker Second Hand Exposure: No; Do You Dip or Chew Tobacco: No; Tobacco Cessation Education Requested by Patient: No Hx Alcohol Use: No Hx Substance Use: No Preferred Language: Nauruan Communication Ability: Effective Heavy Equipment Rental Associate Required: No Beliefs That Will Affect Care: None marital status: marital status details: Juan Roe (38) [phone] Current Living Situation: Family Current Living Situation Comment: Juan; 4 yo daughter Perla; 2 yo son Yonis current occupational status: employed 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 Other Information That Helps Us Care for You: No Feels Safe at Home: Yes Safety Concerns: Feels Safe At This Time Assistive Devices: None Physical Exam Constitutional: WD/WN, vitals as above well developed and well nourished Respiratory: normal respiratory effort, lungs clear to auscultation normal respiratory effort Cardiovascular: RRR, no murmur, no edema Gastrointestinal (Abdomen): normal bowel sounds, soft, nontender, no hepatosplenomegaly Results & Data Vital Signs (Past 12 Hours) Vital Signs Temp Pulse Resp BP 06/20/24 06:06 98.1 F 18 06/20/24 06:02 73 130/86 Coding Level of Care Code None Diagnoses Previous delivery affecting O34.219
[2024-06-20] MEDS: CITRIC ACID/SODIUM CITRATE 15 ML UDC PO SCH (07:25)
[2024-06-20] MEDS: ceFAZolin 2,000 MG in SYRINGE 0 ML IV SCH (07:28)
[2024-06-20] MEDS ORDERED: ePHEDrine sulfate 50 MG/ML AMP ONE (07:58)
[2024-06-20] MEDS ORDERED: oxyCODONE HCL IR 5 MG TAB (IMMEDIATE RELEASE) PO PRN (08:04)
[2024-06-20] MEDS ORDERED: PROMETHAZINE 6.25 MG/50.25 ML BAG IV PRN (08:04)
[2024-06-20] MEDS ORDERED: ONDANSETRON INJ 2 MG/ML 2 ML VIAL IV PRN (08:04)
[2024-06-20] MEDS ORDERED: NALOXONE HCL 0.08 MG in SYRINGE 1.8 ML IV PRN (08:04)
[2024-06-20] MEDS ORDERED: diphenhydrAMINE 50 MG/ML VIAL IV PRN (08:04)
[2024-06-20] MEDS ORDERED: NALOXONE HCL 0.4 MG/1 ML VIAL/CARP IV PRN (08:04)
[2024-06-20] MEDS ORDERED: LACTATED RINGER'S 500 ML IV PRN (08:04)
[2024-06-20] MEDS ORDERED: HYDROmorphone INJ 0.5 MG/0.5 ML SYR IV PRN (08:04)
[2024-06-20] MEDS ORDERED: NALOXONE HCL 1 MG in SODIUM CHLORIDE 0.9% 1,000 ML IV PRN (08:04)
[2024-06-20] MEDS ORDERED: NALBUPHINE HCL INJ 10 MG/ML AMP IV PRN (08:04)
[2024-06-20] MEDS ORDERED: OXYTOCIN 10 UNITS/ML VIAL ONE (08:09)
[2024-06-20] MEDS ORDERED: NO NARCOTICS OR SEDATIVES SCH (08:15)
[2024-06-20] MEDS ORDERED: DC INTRASPINAL MORPHINE SCH (08:15)
--- NOTE | 2024-06-20 08:38 | Operative Report ---
Post Operative Report Pre & Post Diagnosis Operation Date: 06/20/24 07:30 Repeat section 39 completed weeks I identified the patient and participated in the time-out.: Yes Procedure Operation Date: 06/20/24 07:30 Low segment transverse section Surgeon Khoi Rodriguez MD, FACOG Electronic Transaction Implementer Dr. Blanchard Quantitative Blood Loss (QBL) 668 Findings Consistent with Post-Op Diagnosis Specimens cord blood Description of Procedure Regional anesthetic had been given by anesthesia patient was prepped and draped with a leftward tilt preoperative antibiotics had been given in appropriate timing by anesthesiology. Once the prep was allowed to fully dry timeout was performed. Pickups with teeth were used to test the incision area was found to be adequate for incision as the patient did not feel sharp pain. Scalpel was used to make a Pfannenstiel incision on the lower abdomen. We then cut through the subcutaneous fat down to the level of the anterior rectus sheath fascia this was cut in the midline and then extended laterally with the curved Hidalgo scissors. At this stage we then placed 2 Calixto clamps on the anterior aspect of the fascia. Using the curved Hidalgo's we are able to dissect the fascia superiorly away from the rectus muscles. Care was taken to maintain hemostasis. Calixto clamps were then placed to the inferior aspect of the anterior sheath of the fascia. Fascia was then dissected away from the rectus muscles inferiorly towards the pubic bone. A Calixto was then placed in the midline both inferiorly and superiorly. This was to allow exposure by retraction rectus muscles were in the midline with were then able to cut through the peritoneum and then enter the peritoneal cavity. Opening was enlarged to allow exposure of the peritoneal cavity both superiorly and inferiorly. Once adequate space was obtained a bladder retractor was placed to expose the lower segment Metzenbaums were used to dissect the bladder flap inferiorly away from the uterus. This was done sharply bladder retractor was then repositioned to expose the lower segment of the uterus Fresh scalpel was used to make a low transverse incision on the uterus. Uterus was then entered bluntly with the operators finger, membranes ruptured and the opening was enlarged using the operators fingers bluntly pulling superiorly and inferiorly to allow exposure. Baby was delivered by first flexion of the head elevation of the head out of the pelvis and then pressure by the drilling assistant on the maternal abdomen. Baby's head was then delivered mouth and then nares were suctioned and then using gentle traction the baby was fully delivered. Live vigorous infant. Fluid was clear cord clamped and cut cord gases obtained cord blood obtained baby handed to pediatrics. Placenta removed was removed with traction we ensure the entire placenta was removed with a moist lap sponge into the uterus Uterus was then exteriorized. IV Pitocin had been started by anesthesia tone improved there were no extensions the uterus was then closed using 0 Monocryl in a 2 layer closure the first layer closed in a running locked fashion from left to right and then a second closure from left to right in a running nonlocked fashion. At this stage hemostasis was excellent. Uterus was placed back in the peritoneal cavity with suction irrigation out and inspection of the uterus at this stage revealed excellent hemostasis Retractors were removed urine color was clear at this stage of the case we inspected the rectus muscles they were hemostatic fascia was closed with 0 Vicryl. A reinforcing stitch in the superior aspect of the fascia was placed as there was a small defect of 0 Vicryl disclose this well. subcutaneous fat was irrigated and closed with 3-0 Vicryl skin closed with 4-0 subcuticular Monocryl Uterus and adnexa were normal I attest to the content of the Intraoperative Record and any orders documented therein. Any exceptions are noted below. OB Procedure Charges 97865
--- NOTE | 2024-06-20 08:52 | Anesthesiology Progress Note ---
Date of Service June 20, 2024 Anesthesia Post Procedure Vital Signs Vital Signs: Temp Pulse Resp BP Pulse Ox 06/20/24 08:47 64 99 06/20/24 08:42 64 113/67 99 06/20/24 07:08 36.6 C 20 06/20/24 07:03 72 127/81 06/20/24 06:06 36.7 C 18 06/20/24 06:02 73 130/86 Transfer of Care Handoff Completed per policy Notes Mental Status: alert / awake / arousable and participated in evaluation Patient Amnestic to Procedure: No Nausea / Vomiting: adequately controlled Pain: adequately controlled Airway Patency, RR, SpO2: stable & adequate BP & HR: stable & adequate Hydration State: stable & adequate Neuraxial Anesthesia: was administered and sensory block is resolving Anesthetic Complications: no major complications apparent and Pt Satisfied with anesthetic care
[2024-06-20] MEDS ORDERED: MAGNESIUM HYDROXIDE SUSP 30 ML UDC PO PRN (08:54)
[2024-06-20] MEDS ORDERED: CALCIUM CARBONATE 500 MG CHEWABLE TAB PO PRN (08:54)
[2024-06-20] MEDS ORDERED: HYDROCORTISONE ACETATE 25 MG SUPP PR PRN (08:54)
[2024-06-20] MEDS ORDERED: BENZOCAINE 20% SPRY 85 APPLN/85 GM CAN EXT PRN (08:54)
[2024-06-20] MEDS: MoRPHine SULFATE PF 1 MG/ML 10 ML AMP/VIAL INT SPINAL ONE (09:07)
[2024-06-20] MEDS: SODIUM CHLORIDE 0.9% 1,000 ML IV SCH (09:07)
[2024-06-20] MEDS: DIPHTHER/TETAN/PERTUS Vaccine (Tdap, Adol/Adult) 0.5mL IM ONE (09:07)
[2024-06-20] MEDS: SERTRALINE HCL 50 MG TABLET PO SCH (09:08)
[2024-06-20] MEDS: KETOROLAC 30 MG/ML VIAL IV SCH (09:12)
[2024-06-20] MEDS: ePHEDrine sulfate 50 MG/ML AMP IV PRN (11:15)
[2024-06-20] MEDS ORDERED: ePHEDrine sulfate 50 MG/ML AMP IV PRN (11:52)
[2024-06-20] MEDS: SIMETHICONE 80 MG CHEW PO SCH (13:04)
[2024-06-20] MEDS: OXYTOCIN 20 UNITS/LR 1,002 ML IV SCH (14:34)
[2024-06-20] MEDS: ACETAMINOPHEN 325 MG TAB PO SCH (15:10)
[2024-06-20] MEDS: DOCUSATE SODIUM 100 MG CAP PO SCH (21:57)
[2024-06-20] MEDS: SENNA 8.6 MG TAB PO PRN (21:57)
[2024-06-21] MEDS ORDERED: diphenhydrAMINE Capsule 25 MG CAP PO PRN (02:06)
[2024-06-21] MEDS ORDERED: HYDROmorphone INJ 0.5 MG/0.5 ML SYR IV PRN (02:06)
[2024-06-21] MEDS ORDERED: PROMETHAZINE 12.5 MG/50.5 ML BAG IV PRN (02:06)
[2024-06-21] MEDS ORDERED: ONDANSETRON INJ 2 MG/ML 2 ML VIAL IV PRN (02:06)
[2024-06-21] MEDS ORDERED: oxyCODONE HCL IR 5 MG TAB (IMMEDIATE RELEASE) PO PRN (02:06)
[2024-06-21] MEDS ORDERED: diphenhydrAMINE 50 MG/ML VIAL IV PRN (02:06)
--- NOTE | 2024-06-21 07:04 | Obstetrical Progress Note ---
Date of Service June 21, 2024 Assessment & Plan (1) Encounter for assessment: Plan: Patient is POD 1 s/p rLTCS and doing well - Eating well, voiding well, ambulating well - vitals reviewed and within normal limits - pain well controlled with analgesics - OOB, ambulation, diet progression as tolerated - Blood type: O+ GBS neg, rubella immune - Plan to discharge tomorrow - After discharge, 6 week follow up with [facility] O[facility]YN Admission and Anticipated Discharge Date Admission Date: June 20, 2024 Supervising Physician Co-Signing Physician Notes Resident Physician Supervision Note: I was present with Dr. Hernandez during the history and exam. I discussed the case with the resident and agree with the findings and plan as documented in the note. Any exceptions or clarifications are listed here: Hemoglobin now 7.4 we will watch carefully discussed possible chance of blood transfusion Documented By: Khoi Rodriguez MD, FACOG Subjective 33 yo post-operative day 1 s/p rLTCS Ambulation: ambulating normally Voiding: no voiding problems Passing Gas:: Yes Diet Tolerance:: regular diet Lochia:: Small Feeding Type:: bottle feeding Current Pain Level:3/10 Resting comfortably this AM in NAD. Denies TORRES, CP, SOB, N/V/D, LE pain/swelling. Physical Exam Physical Exam: General: patient resting comfortably, NAD, non-toxic in appearance, answers questions appropriately. Skin: warm, dry, intact HEENT: NC/AT, anicteric sclera, conjunctiva without injection, moist mucus membranes. Heart: +S1/S2, regular, no m/r/g Lungs: equal air entry bilaterally, no rales/rhonchi/wheezes Abd: +BS, soft, NT/ND, uterine fundus firm at umbilicus, caesarean incision clean and without erythema Ext: warm, no clubbing/cyanosis or edema Neuro: nonfocal, speech intact, no facial droop, moving all extremities. Results & Data Vital Signs (Past 12 Hours) Vital Signs Temp Pulse Resp BP Pulse Ox O2 Del Method 06/21/24 03:10 36.5 C 75 16 126/83 98 Room Air 06/20/24 23:08 36.6 C 70 16 115/77 98 Room Air 06/20/24 20:01 36.7 C 80 18 118/77 98 Room Air 06/20/24 20:00 16 98 Resident Activity Tracking Resident Involvement: Resident Care Provided Care Provided: OB Delivery
[2024-06-21 07:10] LABS: Hemoglobin 7.4 g/dl (12.0-16.0); Mean Corpuscular Hemoglobin 30.6 pg (25.0-34.0); Mean Corpuscular Hgb Conc 33.6 g/dL (32.0-36.0); Mean Corpuscular Volume 90.9 fL (80.0-100.0); Mean Platelet Volume 10.7 fL (9.4-12.4); Platelet Count 147 K/uL (130-400); RDW Coefficient of Variation 13.8 % (11.5-14.5); RDW Standard Deviation 44.7 fL (36.4-46.3); Red Blood Count 2.42 M/uL (4.20-5.40); White Blood Count 12.69 K/ul (4.8-10.8)
[2024-06-21 07:38] LABS: Basophils # (auto) 0.03 K/uL (0.00-0.20); Basophils % (auto) 0.2 %; Eosinophils % (auto) 0.8 %; Immature Granulocytes # (auto) 0.07 K/uL (0.01-0.20); Immature Granulocytes % (auto) 0.6 %; Lymphocytes # (auto) 2.39 K/uL (1.20-3.40); Lymphocytes % (auto) 18.8 %; Monocytes # (auto) 0.68 K/uL (0.11-0.59); Monocytes % (auto) 5.4 %; Neutrophils # (auto) 9.42 K/uL (1.40-6.50); Neutrophils % (auto) 74.2 %; RBC Morphology Unremarkable
[2024-06-21] MEDS: PRENATAL VITAMIN 1 TAB PO SCH (08:22)
[2024-06-21] MEDS: FERROUS SULFATE 325 MG TAB PO SCH (08:22)
[2024-06-21] MEDS: IBUPROFEN 600 MG TAB PO SCH (08:23)
[2024-06-21] MEDS ORDERED: KETOROLAC 30 MG/ML VIAL IV PRN (08:24)
[2024-06-21] MEDS: bisacodyL 5 MG TABEC PO SCH (20:12)
--- NOTE | 2024-06-22 07:04 | Obstetrical Progress Note ---
Date of Service June 22, 2024 Assessment & Plan (1) Encounter for assessment: Plan: Patient is POD 2 s/p rLTCS and doing well - Eating well, voiding well, ambulating well - vitals reviewed and within normal limits - pain well controlled with analgesics - OOB, ambulation, diet progression as tolerated - Blood type: O+ GBS neg, rubella immune - Plan to discharge today - After discharge, 6 week follow up with [facility] Admission and Anticipated Discharge Date Admission Date: June 20, 2024 Supervising Physician Co-Signing Physician Notes Resident Physician Supervision Note: I interviewed and examined the patient. Discussed with Dr. Hernandez and agree with findings and plan as documented in the note. Any exceptions or clarifications are listed here:Patient had some SOB when ambulating yesterday , feels better this morning. H&H this morning is now 7.8 (was 7.4). consent for blood t ransfusion signed if still having any significant SOB with ambulation. plan to discharge later today. Documented By: Amber Ott MD, FACOG Subjective 33 yo post-operative day 2 s/p rLTCS Ambulation: ambulating normally Voiding: no voiding problems Passing Gas:: Yes Diet Tolerance:: regular diet Lochia:: Small Feeding Type:: bottle feeding Current Pain Level:3/10 Resting comfortably this AM in NAD. Denies TORRES, CP, SOB, N/V/D, LE pain/swelling. Physical Exam Physical Exam: General: patient resting comfortably, NAD, non-toxic in appearance, answers questions appropriately. Skin: warm, dry, intact HEENT: NC/AT, anicteric sclera, conjunctiva without injection, moist mucus membranes. Heart: +S1/S2, regular, no m/r/g Lungs: equal air entry bilaterally, no rales/rhonchi/wheezes Abd: +BS, soft, NT/ND, uterine fundus firm at umbilicus, caesarean incision clean and without erythema Ext: warm, no clubbing/cyanosis or edema Neuro: nonfocal, speech intact, no facial droop, moving all extremities. Results & Data Vital Signs (Past 12 Hours) Vital Signs Temp Pulse Resp BP 06/22/24 00:45 36.8 C 96 H 18 129/77 06/21/24 20:10 36.9 C 97 H 18 143/87 H Resident Activity Tracking Resident Involvement: Resident Care Provided Care Provided: OB Delivery (1) Encounter for assessment visit type: exam and care immediately after delivery Qualified Code(s): Z39.0 - Encounter for care and examination of mother immediately after delivery
[2024-06-22 07:25] LABS: Hemoglobin 7.8 g/dl (12.0-16.0)
[2024-06-22] MEDS ORDERED: bisacodyL 10 MG SUPP PR PRN (08:24)
[2024-06-22] MEDS ORDERED: SODIUM CHLORIDE 0.9% 100 ML IV PRN ×2 (08:47→08:48)
[2024-06-22] MEDS: IBUPROFEN 600 MG TAB PO PRN (08:48)
[2024-06-22 10:27] VITALS: O2SAT 99
[2024-06-22 12:07] VITALS: RESP 16; TEMP 98.1
[2024-06-22 14:18] LABS: Hematocrit (blood only) 26.4 % (37.0-47.0)
[2024-06-22] MEDS ORDERED: ACETAMINOPHEN 325 MG TAB PO PRN (14:24)
[2024-06-22 14:37] VITALS: BP 135/85; PULSE 85
== END 2024-06-22 15:45 | disposition home or self-care (01) | DRG 788 ==
LOC: 4S1 05:40 → EDSTATUS 07:30 → 4E2 12:28